=== PATIENT | male | born 1985 | race Caucasian/White ===

== ENCOUNTER 2016-09-20 20:57 | Emergency (ER) | payer OTHER ==
[2016-09-20 21:06] VITALS: RESP 18
--- NOTE | 2016-09-20 21:26 | ED ---
General Adult HPI - General Chief complaint: Recheck/Abnormal Lab/Rx Stated complaint: post op--poss hematoma Time Seen by Provider: 09/20/16 21:17 Source: patient, RN notes reviewed Mode of arrival: ambulatory Limitations: no limitations - History of Present Illness Initial comments: This is a 31-year-old male who presents with bruising to the left side chest after removal of a lump on Sunday. Patient states he had a "fatty necrosis "of his left-sided chest after blunt trauma to the chest in June while working on his car. Patient states gradually over the last 3 days he has noticed increased bruising and swelling to the area. Patient states he's been taking Motrin for pain and denies any pain today. Patient is not on any anticoagulants. Patient has not noticed any purulent drainage or seeping from the incision. Patient denies any recent fever, chills, shortness breath, chest pain, abdominal pain, nausea/vomiting/diarrhea, back pain, numbness, tingling, hematuria, headache, or visual changes, or any other complaints. - Related Data Previous Rx's Medication Instructions Recorded Amoxic-Pot Clav 875-125Mg 1 tab PO Q12HR 7 Days 09/20/16 [Augmentin 875-125] Allergies Allergy/AdvReac Type Severity Reaction Status Date / Time No Known Allergies Allergy Verified 09/20/16 21:15 Review of Systems ROS Statement: Those systems with pertinent positive or pertinent negative responses have been documented in the HPI. ROS Other: All systems not noted in ROS Statement are negative. Past Medical History Past Medical History: No Reported History History of Any Multi-Drug Resistant Organisms: None Reported Additional Past Surgical History / Comment(s): Lumpectomy Past Psychological History: No Psychological Hx Reported Smoking Status: Never smoker Past Alcohol Use History: None Reported Past Drug Use History: None Reported General Exam - General Exam Comments Initial Comments: General: The patient is awake and alert, in no distress, and does not appear acutely ill. Eye: Pupils are equal, round and reactive to light, extra-ocular movements are intact. No nystagmus. There is normal conjunctiva bilaterally. No signs of icterus. Ears: TMs pink and pearly with intact cone of light bilaterally. Normal external ear canals Nose: Nasal turbinates pink and moist Mouth and throat: There are moist mucous membranes and no oral lesions. Neck: The neck is supple, there is no tenderness or JVD. Cardiovascular: There is a regular rate and rhythm. No murmur, rub or gallop is appreciated. Respiratory: Lungs are clear to auscultation, respirations are non-labored, breath sounds are equal. No wheezes, stridor, rales, or rhonchi. Musculoskeletal: Normal ROM, no tenderness. Strength 5/5. Sensation intact. Radial pulses equal bilaterally 2+. Neurological: A&O x 3. CN II-XII intact, There are no obvious motor or sensory deficits. Coordination appears grossly intact. Speech is normal. Skin: Ecchymosis noted to the left side chest with swelling surrounding a central incision that is clean, dry and intact. No sign of infection. Skin is warm and dry. Psychiatric: Cooperative, appropriate mood & affect, normal judgment. Limitations: no limitations Course Vital Signs 09/20/16 09/20/16 21:02 22:39 Temperature 98.4 F 98.3 F Pulse Rate 78 87 Respiratory 18 18 Rate Blood Pressure 139/87 143/99 O2 Sat by Pulse 97 97 Oximetry Medical Decision Making - Medical Decision Making This is a 31-year-old male who presents with increased bruising around his incision from a lump removal on Sunday. On physical exam patient is afebrile and well-appearing. Ecchymosis noted to the left side chest with swelling surrounding a central incision that is clean, dry and intact. No sign of infection. I discussed this case with attending physician Dr. Walter who also examined the patient. I discussed ecchymosis with the patient. I discussed ice to the area. I discussed that Dr. Walter suggests the patient be put on a course of Augmentin in case of infection. I discussed return parameters. I discussed Tylenol or Motrin for any pain. Discussed that patient should follow up with PCP in one to 2 days or return to the [facility] for any worsening symptoms or for any further concerns. Patient was receptive to this plan and patient will be discharged home. I discussed this case with attending physician Dr. Walter who also examined the patient and agrees the plan as stated above. Disposition Clinical Impression: Ecchymosis Disposition: HOME SELF-CARE Condition: Good Instructions: Ecchymosis (ED) Additional Instructions: Please use antibiotics as prescribed. Please use medication as discussed. Please follow-up with family doctor in the next 2 days of symptoms have not improved. Please return to emergency room if the symptoms increase or worsen or for any other concerns. Prescriptions: Amoxic-Pot Clav 875-125Mg [Augmentin 875-125] 1 tab PO Q12HR 7 Days Referrals: Nonstaff,Physician [Primary Care Provider] - 1-2 days Time of Disposition: 22:26
[2016-09-20 22:43] VITALS: BP 143/99; PULSE 87; TEMP 98.3
== END 2016-09-20 22:39 | disposition home or self-care (01) ==
LOC: EC 20:57
DX: L76.32 Postprocedural hematoma of skin and subcutaneous tissue following other procedure (principal); Z98.890 Other specified postprocedural states
CPT/HCPCS: 99283